=== PATIENT | male | born 1995 | race Caucasian/White ===

== ENCOUNTER 2023-08-25 19:08 | Emergency (ER) | payer SELFPAY ==
[2023-08-25] MEDS: Amoxicillin/Clavulanate K 875-125 MG Tab PO ONE (20:38)
== END 2023-08-25 20:43 | disposition home or self-care (01) ==
LOC: DL.ED 19:08
DX: L60.0 Ingrowing nail (principal); E66.01 Morbid (severe) obesity due to excess calories; E10.9 Type 1 diabetes mellitus without complications; Z79.4 Long term (current) use of insulin; Z68.41 Body mass index [BMI] 40.0-44.9, adult
CPT/HCPCS: 99283; A9270-GY